=== PATIENT | female | born 1970 | race Caucasian/White ===

== ENCOUNTER 2021-01-10 12:20 | Emergency (ER) | payer BC, SELFPAY ==
[2021-01-10 12:39] VITALS: BP 130/92; PULSE 85; RESP 16; TEMP 36.8; O2SAT 98; BMI 31.1
--- NOTE | 2021-01-10 12:41 | XR_ITS ---
PROCEDURE: XR HAND RT MIN 3V CLINICAL INDICATION: smashed hand Injury with pain COMPARISON: No exams were available for comparison FINDINGS: No fracture or dislocation. No lytic or blastic change. There is normal mineralization. The joint spaces are well-preserved. No significant degenerative/arthritic changes. No erosive changes evident. Other findings:None. IMPRESSION: No acute findings. Dictated by: Emanuel Mcneal MD 01/10/2021 13:02 Emanuel Mcneal MD in [place] 01/10/2021 13:02
[2021-01-10 13:44] VITALS: BP 130/92; PULSE 85; RESP 16; TEMP 36.8; O2SAT 98; BMI 31.1
--- NOTE | 2021-01-10 14:10 | HMH.EDUTC ---
[facility] Disposition Clinical Impression: Hand contusion Qualifiers: Encounter type: initial encounter Laterality: right Qualified Code(s): S60.221A - Contusion of right hand, initial encounter Disposition: Home, Self-Care Condition on Discharge: Good Instructions: How To Perform RICE (Rest, Ice, Compress, Elevate) Additional Instructions: *RICE, Rest the extremity, Ice 15-20 minutes 3-4 times daily, Compress- wear the todd wrap as discussed as much as possible to help reduce swelling and pain, Elevate the extremity when at rest *Todd wrap/velcro splint is for support and help control swelling, use it except in the shower. Be sure that is not to tight but not to loose either *Elevate when resting *Ibuprofen every 6-8 hours as needed for pain an inflammation. If need something more can take Tylenol in between doses of Ibuprofen to help Immediately follow up with your family doctor for new or worsening of symptoms, or no noticeable improvement over the next 3-5 days Follow up with your Family Doctor if no improvement Return if needed Straight to ER if any life threatening symptoms Referrals: Eran Bowman MD [Primary Care Provider] - As needed Time of Disposition: 14:16 Medical Decision Making - Calvin Inquiry Pt receiving controlled substance: No Calvin was queried for this patient: No Vital Signs: 01/10/21 12:39 01/10/21 13:44 Temperature 98.3 F 98.3 F Temperature Source Oral Temporal Artery Scan Pulse Rate [Left] 85 85 Respiratory Rate 16 16 Blood Pressure [Right Arm] 130/92 H 130/92 H Blood Pressure Mean [Right Arm] 104 104 Blood Pressure Source [Right Arm] Automatic Cuff Automatic Cuff Blood Pressure Position [Right Arm] Sitting 02 Sat by Pulse Oximetry 98 98 Oxygen Delivery Method Room Air Room Air - Radiology Data #1 Image(s): Hand Image Reviewed: Yes I have reviewed radiologist's interpretation Preliminary Findings: No Fracture Seen No acute findings [facility] HPI - General Stated complaint: cow pinned R hand 01/05 swollen/painful Time Seen by Provider: 01/10/21 14:10 Mode of Arrival: Ambulatory Source of Information: Patient Limitations: No Limitations Description of Symptoms (Recalled from Triage Doc. 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 States that it smashed her hand and she immediatly had swelling and redness States that swelling has gone down but she still has pain in the top of her hand between index finger and thumb that shoots down her hand when she moves it - Related Data Home Medications Medication Instructions Recorded Confirmed No Known Home Medications 01/10/21 01/10/21 Allergies Allergy/AdvReac Type Severity Reaction Status Date / Time No Known Allergies Allergy Verified 01/10/21 13:43 - Worker's Comp Is this a Worker's Comp case?: No [facility] History - Hepatitis A Screen Drug use history?: No High risk sexual behaviors?: No History of sexually transmitted infection?: No Currently employed?: No Childcare worker?: No Do you have indoor plumbing?: Yes Do you have electricity?: Yes Attestation statement:: This patient has been screened for Hepatitis A risk factors. I have reviewed the patient's past medical history: Yes Medical History: Reports:: Asthma - Social History Smoking Status: Never smoker Alcohol Intake: never Occupational Status: employed Housing: house Household Members: spouse Family Hx:: Non-contributory ROS Obtained: Yes All systems reviewed & no additional complaints, Yes Systems reviewed as appropriate & no additional complaints - Constitutional Con
[2021-01-10 14:30] VITALS: BP 130/81; PULSE 78; RESP 18; TEMP 36.8; O2SAT 98
== END 2021-01-10 14:45 | disposition home or self-care (01) ==
LOC: ER 12:41 → UTC 12:41
PROVIDERS: Emergency Provider Nurse Practitioner; PCP Family Medicine
DX: S60.221A Contusion of right hand, initial encounter (principal); W23.1XXA Caught, crushed, jammed, or pinched between stationary objects, initial encounter; Y92.71 Barn as the place of occurrence of the external cause
CPT/HCPCS: 73130; 99202; G0463

== ENCOUNTER 2023-05-28 12:45 | Outpatient (CLI) | payer BC, SELFPAY ==
[2023-05-28 13:14] LABS: Basophils % 0.8 % (0.1-2.0); Eosinophils # 0.2 K/mm3 (0.0-0.4); Eosinophils % 3.5 % (0.1-12.0); Hematocrit 49.6 % (37.0-47.0); Hemoglobin 16.2 g/dL (12.2-16.2); Lymphocytes # 1.5 K/mm3 (0.7-4.5); Lymphocytes % 30.9 % (10-50); Mean Corpuscular HGB Conc 32.6 g/dL (31.8-35.4); Mean Corpuscular Volume 92.2 fl (81-99); Mean Platelet Volume 9.1 fl (7.4-10.4); Monocytes # 0.4 K/mm3 (0.1-1.0); Monocytes % 6.9 % (1.7-9.3); Neutrophils # 2.9 K/mm3 (1.8-7.8); Neutrophils % 57.8 % (37.0-80.0); Platelet Count 206 K/mm3 (142-424); Red Blood Count 5.38 M/mm3 (4.20-5.40); Red Cell Distribution Width 14.3 % (11.5-17.5)
[2023-05-28 13:28] LABS: Microscopic, Urine URINE MICROSCOPIC (MICROSCOPIC)
[2023-05-28 13:35] LABS: Appearance,Urine CLEAR (Clear); Bilirubin,Urine Negative (Negative); Blood, Urine Negative (Negative); Color,Urine YELLOW (Yellow); Glucose,Urine (UA) Negative (Negative); Ketones,Urine Negative (Negative); Leukocyte Esterase,Urine Negative (Negative); Nitrate,Urine Negative (Negative); Protein,Urine Negative (Negative); Specific Gravity, Urine <= 1.005 (1.005-1.030); Urobilinogen,Urine 0.2 EU/dl (0.2)
[2023-05-28 13:46] LABS: Chloride 104 mmol/L (98-107); Potassium 5.3 mmoL/L (3.5-5.1); Sodium 142 mmol/L (136-145)
[2023-05-28 13:48] LABS: Blood Urea Nitrogen 15 mg/dl (7-17); Estimated Glomerular Filt Rate 58 ml/min (>60); GFR (African American) 70 ML/MIN (>60)
[2023-05-28 13:49] LABS: Alanine Aminotransferase 27 U/L (12-78); Albumin Level 4.4 g/dl (3.5-5.0); Albumin/Globulin Ratio 1.4 (1.1-1.8); Alkaline Phosphatase 107 U/L (38-126); Anion Gap 13.3 mEq/L (5-15); Aspartate Amino Transferase 34 U/L (14-36); Bilirubin,Total 0.4 mg/dl (0.2-1.3); Calcium 10.3 mg/dl (8.4-10.2); Carbon Dioxide 30 mmol/L (22.0-30.0); Cholesterol 295 mg/dl (140-200); Globulin 3.1 g/dL (1.3-3.2); Glucose 104 mg/dl (74-100); HDL Cholesterol 42 mg/dl (40-60); Total Protein,Serum 7.5 g/dl (6.3-8.2); Triglycerides 178 mg/dl (30-150); VLDL Cholesterol 36 mg/dL (0-40)
[2023-05-28 13:49] LABS: Bacteria,Urine Trace /lpf; WBC,Urine Occasional #/hpf (0-3)
[2023-05-28 14:00] LABS: Direct LDL Cholesterol 187.11 mg/dL (100-129)
[2023-05-28 14:04] LABS: Hemoglobin A1C 5.6 % (4.0-6.0)
[2023-05-28 14:19] LABS: Thyroid Stimulating Hormone 6.68 uIU/mL (0.465-4.68)
[2023-05-28 14:21] LABS: Free T4 (Free Thyroxine) 0.88 ng/dl (0.78-2.19)
[2023-05-28 14:22] LABS: 25-OH Vitamin D, Total 35.4 ng/mL (30-100)
[2023-05-28 15:55] LABS: Folate 7.78 ng/mL; Vitamin B12 363 pg/mL (239-931)
== END 2023-05-28 23:59 ==
LOC: LAB.DROPOF 12:46
PROVIDERS: PCP Nurse Practitioner Family; Visit Provider Nurse Practitioner Family
DX: I10 Essential (primary) hypertension (principal); R42 Dizziness and giddiness; Z13.1 Encounter for screening for diabetes mellitus; G47.33 Obstructive sleep apnea (adult) (pediatric); R39.9 Unspecified symptoms and signs involving the genitourinary system; B96.89 Other specified bacterial agents as the cause of diseases classified elsewhere; Z79.899 Other long term (current) drug therapy
CPT/HCPCS: 80053; 80061; 81001; 82306; 82607; 82746; 83036; 84439; 84443; 85025; 87086

== ENCOUNTER 2023-05-28 13:22 | Outpatient (CLI) | payer BC, SELFPAY | END 2023-05-28 23:59 | LOC: LAB.DROPOF 13:22 | PROVIDERS: PCP Nurse Practitioner Family; Visit Provider Nurse Practitioner Family | DX: I10 Essential (primary) hypertension (principal) ==

== ENCOUNTER 2023-06-25 12:58 | Outpatient (CLI) | payer BC, SELFPAY ==
[2023-06-25 13:46] LABS: Chol/HDL Ratio 4.3 (1-3.5); Cholesterol 187 mg/dl (140-200); Creatine Kinase 78 U/L (30-135); HDL Cholesterol 44 mg/dl (40-60); Magnesium 2.1 mg/dl (1.6-2.3); Triglycerides 128 mg/dl (30-150); VLDL Cholesterol 26 mg/dL (0-40)
[2023-06-25 14:03] LABS: Free T4 (Free Thyroxine) 0.82 ng/dl (0.78-2.19)
[2023-06-25 14:19] LABS: Thyroid Stimulating Hormone 7.32 uIU/mL (0.465-4.68)
== END 2023-06-25 23:59 ==
LOC: LAB.DROPOF 12:58
PROVIDERS: PCP Nurse Practitioner Family; Visit Provider Nurse Practitioner Family
DX: M79.18 Myalgia, other site (principal); E03.9 Hypothyroidism, unspecified
CPT/HCPCS: 80061; 82550; 83735; 84439; 84443

== ENCOUNTER 2023-08-27 15:26 | Outpatient (CLI) | payer BC, SELFPAY ==
[2023-08-27 17:00] LABS: Free T4 (Free Thyroxine) 0.65 ng/dl (0.78-2.19)
== END 2023-08-27 23:59 ==
LOC: LAB.DROPOF 15:26
PROVIDERS: PCP Nurse Practitioner Family; Visit Provider Nurse Practitioner Family
DX: E03.9 Hypothyroidism, unspecified (principal)
CPT/HCPCS: 84439; 84443

== ENCOUNTER 2023-08-31 13:17 | Outpatient (CLI) | payer BC, SELFPAY ==
[2023-08-31 13:37] LABS: Chloride 104 mmol/L (98-107); Potassium 5.6 mmoL/L (3.5-5.1); Sodium 138 mmol/L (136-145)
[2023-08-31 13:40] LABS: Alanine Aminotransferase 36 U/L (12-78); Albumin Level 4.2 g/dl (3.5-5.0); Albumin/Globulin Ratio 1.4 (1.1-1.8); Alkaline Phosphatase 114 U/L (38-126); Anion Gap 6.6 mEq/L (5-15); Aspartate Amino Transferase 34 U/L (14-36); Bilirubin,Total 0.6 mg/dl (0.2-1.3); Blood Urea Nitrogen 19 mg/dl (7-17); Carbon Dioxide 33 mmol/L (22.0-30.0); Estimated Glomerular Filt Rate 52 ml/min (>60); GFR (African American) 63 ML/MIN (>60); Globulin 2.9 g/dL (1.3-3.2); Total Protein,Serum 7.1 g/dl (6.3-8.2)
[2023-08-31 13:41] LABS: Calcium 10.9 mg/dl (8.4-10.2); Glucose 86 mg/dl (74-100)
[2023-08-31 13:55] LABS: Free T4 (Free Thyroxine) 0.77 ng/dl (0.78-2.19)
[2023-08-31 15:30] LABS: Intact Parathyroid Hormone 196.1 pg/mL (7.5-53.5)
[2023-09-02 10:31] LABS: Thyroid Peroxidase Antibodies 351 IU/mL (0-34)
== END 2023-08-31 23:59 | disposition home or self-care (01) ==
LOC: LAB.DROPOF 13:18
PROVIDERS: PCP Nurse Practitioner Family; Visit Provider Nurse Practitioner Family
DX: E03.9 Hypothyroidism, unspecified (principal); E21.3 Hyperparathyroidism, unspecified
CPT/HCPCS: 80053; 83970; 84439; 84443; 86376

== ENCOUNTER 2023-09-09 13:11 | Outpatient (CLI) | payer BC, SELFPAY ==
--- NOTE | 2023-09-09 13:12 | US_ITS ---
FINAL REPORT TECHNIQUE: Real-time grayscale and color ultrasound of the thyroid was performed. CLINICAL HISTORY: Thyroidism, primary hyperparathyroidism COMPARISON: None FINDINGS: The thyroid gland measures 42 x 12 x 15 mm on the right and 36 x 14 x 12 mm on the left. The isthmus measures 3 mm. The parenchyma is heterogeneous. Nodules: No evidence of mass or nodule. IMPRESSION: Heterogeneous thyroid without evidence of mass or nodule. Reviewed, Interpreted and Dictated by Bronson Doe MD Transcribed by Sharon Stockton Authenticated and . [facility]
== END 2023-09-09 23:59 | disposition home or self-care (01) ==
LOC: RAD 13:12
PROVIDERS: PCP Nurse Practitioner Family; Visit Provider Nurse Practitioner Family
DX: E21.3 Hyperparathyroidism, unspecified (principal); E03.9 Hypothyroidism, unspecified
CPT/HCPCS: 76536

== ENCOUNTER 2023-09-17 13:22 | Outpatient (CLI) | payer BC, SELFPAY ==
--- NOTE | 2023-09-17 13:28 | NM_ITS ---
FINAL REPORT CLINICAL HISTORY: thyroid function/imaging, w/ technetium COMPARISON: None FINDINGS: THYROID SCAN ONLY: A thyroid scan was performed after the intravenous administration of 9.5 mCi of technetium sodium pertechnetate. No uptake was measured. No evidence of focal areas of increased or decreased uptake are noted. The uptake is homogeneous. IMPRESSION: Normal appearing thyroid scan only, without evidence of areas of increased or decreased uptake of radionuclide. Reviewed, Interpreted and Dictated by Mamie Pagan MD Transcribed by Orly Samuels Authenticated and [facility]
[2023-09-17] MEDS: SODIUM CHLORIDE 0.9% 10ML SYR (RAD ONLY) 10 ML IV (14:00)
[2023-09-17] MEDS: ISOTOPE TE 99 SODIUM PERTECH (PER MCI) 1 MCI IV (15:31)
== END 2023-09-17 23:59 | disposition home or self-care (01) ==
LOC: RAD 13:22
PROVIDERS: PCP Nurse Practitioner Family; Visit Provider Nurse Practitioner Family
DX: E03.9 Hypothyroidism, unspecified (principal); E21.3 Hyperparathyroidism, unspecified
CPT/HCPCS: 78013; A9512

== ENCOUNTER 2023-09-23 12:20 | Outpatient (CLI) | payer BC, SELFPAY ==
[2023-09-23 13:30] LABS: Chloride 104 mmol/L (98-107)
[2023-09-23 13:31] LABS: Potassium 5.4 mmoL/L (3.5-5.1); Sodium 141 mmol/L (136-145)
[2023-09-23 13:33] LABS: Alanine Aminotransferase 30 U/L (12-78); Aspartate Amino Transferase 38 U/L (14-36); Blood Urea Nitrogen 15 mg/dl (7-17); Estimated Glomerular Filt Rate 65 ml/min (>60); GFR (African American) 79 ML/MIN (>60)
[2023-09-23 13:34] LABS: Albumin Level 4.3 g/dl (3.5-5.0); Albumin/Globulin Ratio 1.4 (1.1-1.8); Alkaline Phosphatase 106 U/L (38-126); Anion Gap 13.4 mEq/L (5-15); Bilirubin,Total 0.5 mg/dl (0.2-1.3); Calcium 11.1 mg/dl (8.4-10.2); Carbon Dioxide 29 mmol/L (22.0-30.0); Glucose 106 mg/dl (74-100); Total Protein,Serum 7.3 g/dl (6.3-8.2)
[2023-09-23 13:50] LABS: Free T4 (Free Thyroxine) 1.05 ng/dl (0.78-2.19)
[2023-09-23 14:04] LABS: Thyroid Stimulating Hormone 7.37 uIU/mL (0.465-4.68)
== END 2023-09-23 23:59 | disposition home or self-care (01) ==
LOC: LAB 12:21
PROVIDERS: PCP Nurse Practitioner Family; Visit Provider Nurse Practitioner Family
DX: N17.9 Acute kidney failure, unspecified (principal); E21.3 Hyperparathyroidism, unspecified; E03.9 Hypothyroidism, unspecified
CPT/HCPCS: 36415; 80053; 84439; 84443

== ENCOUNTER → 2023-11-18 07:26 | Outpatient (CLI) | payer BC, SELFPAY | LOC: SL 07:26 | PROVIDERS: PCP Nurse Practitioner Family; Visit Provider Nurse Practitioner Family | DX: R06.89 Other abnormalities of breathing (principal); G47.33 Obstructive sleep apnea (adult) (pediatric) | CPT/HCPCS: G0399 ==

== ENCOUNTER 2024-03-23 09:34 | Outpatient (CLI) | payer BC, SELFPAY | END 2024-03-23 23:59 | disposition home or self-care (01) | LOC: LAB.DROPOF 03-24 10:49 | PROVIDERS: PCP Nurse Practitioner Family; Visit Provider Nurse Practitioner Family | DX: R39.9 Unspecified symptoms and signs involving the genitourinary system (principal) | CPT/HCPCS: 87086 ==

== ENCOUNTER 2024-03-25 12:18 | Outpatient (CLI) | payer BC, SELFPAY ==
[2024-03-25 12:24] LABS: Microscopic, Urine URINE MICROSCOPIC (MICROSCOPIC)
[2024-03-25 13:16] LABS: Appearance,Urine CLEAR (Clear); Bilirubin,Urine Negative (Negative); Blood, Urine Negative (Negative); Color,Urine YELLOW (Yellow); Glucose,Urine (UA) Negative (Negative); Ketones,Urine Negative (Negative); Leukocyte Esterase,Urine Negative (Negative); Nitrate,Urine Negative (Negative); Protein,Urine Negative (Negative); Urobilinogen,Urine 0.2 EU/dl (0.2)
[2024-03-25 13:41] LABS: Bacteria,Urine Trace /lpf
== END 2024-03-25 23:59 | disposition home or self-care (01) ==
LOC: LAB 12:19
PROVIDERS: PCP Nurse Practitioner Family; Visit Provider Nurse Practitioner Family
DX: R82.90 Unspecified abnormal findings in urine (principal)
CPT/HCPCS: 81001

== ENCOUNTER 2024-04-07 16:03 | Outpatient (CLI) | payer BC, SELFPAY ==
--- NOTE | 2024-04-07 16:07 | XR_ITS ---
PROCEDURE INFORMATION: Exam: XR Abdomen Exam date and time: 04/07/2024 4:16 PM Age: 53 years old Clinical indication: Abdominal pain; Flank; Right; Additional info: Right low back pain TECHNIQUE: Imaging protocol: Radiologic exam of the abdomen. Views: Frontal supine view of the abdomen. 1 View. Total images: 2 COMPARISON: No relevant prior studies available. FINDINGS: Gastrointestinal tract: Bowel gas pattern is nonobstructive and nonspecific. Intraperitoneal space: Surgical clips noted within the right upper quadrant. Bones/joints: Unremarkable. Other findings: Punctate calcifications overlie the right kidney. IMPRESSION: 1. Punctate calcifications overlie the right kidney. 2. Bowel gas pattern is nonobstructive and nonspecific.
[2024-04-07 16:24] LABS: Microscopic, Urine URINE MICROSCOPIC (MICROSCOPIC)
[2024-04-07 16:54] LABS: Appearance,Urine CLEAR (Clear); Bilirubin,Urine Negative (Negative); Blood, Urine Negative (Negative); Color,Urine YELLOW (Yellow); Glucose,Urine (UA) Negative (Negative); Ketones,Urine Negative (Negative); Leukocyte Esterase,Urine Negative (Negative); Nitrate,Urine Negative (Negative); Protein,Urine Negative (Negative); Specific Gravity, Urine 1.025 (1.005-1.030); Urobilinogen,Urine 0.2 EU/dl (0.2)
[2024-04-07 17:45] LABS: Bacteria,Urine 1+ /lpf; Mucus,Urine 1+ /lpf
== END 2024-04-07 23:59 | disposition home or self-care (01) ==
LOC: LAB 16:04
PROVIDERS: PCP Nurse Practitioner Family; Visit Provider Nurse Practitioner Family
DX: M54.50 Low back pain, unspecified (principal)
CPT/HCPCS: 74018; 81001; 87086

== ENCOUNTER 2024-06-08 08:12 | Outpatient (CLI) | payer BC, SELFPAY ==
--- NOTE | 2024-06-08 08:13 | MM_ITS ---
PROCEDURE INFORMATION: Exam: Bilateral Screening 3D Mammography Exam date and time: 06/08/2024 8:00 AM Age: 54 years old Clinical indication: Screening examination TECHNIQUE: Imaging protocol: Bilateral Screening tomosynthesis and 2D mammography including computer-aided detection (CAD) when performed. COMPARISON: No relevant prior studies available. FINDINGS: MAMMOGRAPHY: Breast composition: There are scattered areas of fibroglandular density. Mass: None. Architectural distortion: None. Calcifications: No suspicious calcifications. Asymmetric density: None. Skin thickening: None. Axillary adenopathy: None. IMPRESSION: No mammographic evidence of malignancy. Annual screening is recommended unless otherwise clinically indicated. ASSESSMENT: BI-RADS Category 1: Negative.
== END 2024-06-08 23:59 | disposition home or self-care (01) ==
LOC: RAD 08:13
PROVIDERS: PCP Nurse Practitioner Family; Visit Provider Obstetrics & Gynecology
DX: Z12.31 Encounter for screening mammogram for malignant neoplasm of breast (principal)
CPT/HCPCS: 77063; 77067

== ENCOUNTER 2024-07-20 16:43 | Outpatient (CLI) | payer BC, SELFPAY ==
[2024-07-20 12:17] LABS: Microscopic, Urine URINE MICROSCOPIC (MICROSCOPIC)
[2024-07-20 12:50] LABS: Basophils % 0.7 % (0.1-2.0); Eosinophils # 0.2 K/mm3 (0.0-0.4); Eosinophils % 4.1 % (0.1-12.0); Hematocrit 49.3 % (37.0-47.0); Hemoglobin 15.9 g/dL (12.2-16.2); Lymphocytes # 1.9 K/mm3 (0.7-4.5); Lymphocytes % 34.3 % (10-50); Mean Corpuscular HGB Conc 32.3 g/dL (31.8-35.4); Mean Corpuscular Hemoglobin 28.3 pg (27.0-31.2); Mean Corpuscular Volume 87.9 fl (81-99); Mean Platelet Volume 11.5 fl (7.4-10.4); Monocytes # 0.4 K/mm3 (0.1-1.0); Monocytes % 6.5 % (1.7-9.3); Neutrophils # 2.9 K/mm3 (1.8-7.8); Neutrophils % 53.8 % (37.0-80.0); Platelet Count 220 K/mm3 (142-424); Red Blood Count 5.61 M/mm3 (4.20-5.40); Red Cell Distribution Width 13.9 % (11.5-17.5); White Blood Count 5.4 K/mm3 (4.8-10.8)
[2024-07-20 13:46] LABS: Appearance,Urine CLEAR (Clear); Bilirubin,Urine Negative (Negative); Blood, Urine Negative (Negative); Color,Urine YELLOW (Yellow); Glucose,Urine (UA) Negative (Negative); Ketones,Urine Negative (Negative); Leukocyte Esterase,Urine TRACE (Negative); Nitrate,Urine Negative (Negative); Protein,Urine Negative (Negative); Specific Gravity, Urine 1.025 (1.005-1.030); Urobilinogen,Urine 0.2 EU/dl (0.2)
[2024-07-20 13:56] LABS: Free T4 (Free Thyroxine) 1.07 ng/dl (0.78-2.19)
[2024-07-20 14:24] LABS: HIV Combo NEGATIVE (Negative)
[2024-07-20 14:31] LABS: Hepatitis C Ab Qual. W/ RFX NEGATIVE (Negative)
[2024-07-20 14:46] LABS: Albumin Level 4.4 g/dl (3.5-5.0); Chloride 103 mmol/L (98-107); Potassium 4.9 mmoL/L (3.5-5.1); Sodium 140 mmol/L (136-145)
[2024-07-20 14:48] LABS: Alanine Aminotransferase 40 U/L (12-78); Aspartate Amino Transferase 40 U/L (14-36); Blood Urea Nitrogen 17 mg/dl (7-17); Estimated Glomerular Filt Rate 58 ml/min (>60); GFR (African American) 70 ML/MIN (>60)
[2024-07-20 14:49] LABS: Albumin/Globulin Ratio 1.6 (1.1-1.8); Alkaline Phosphatase 85 U/L (38-126); Anion Gap 11.9 mEq/L (5-15); Bilirubin,Total 0.3 mg/dl (0.2-1.3); Carbon Dioxide 30 mmol/L (22.0-30.0); Cholesterol 228 mg/dl (140-200); Globulin 2.7 g/dL (1.3-3.2); Glucose 84 mg/dl (74-100); HDL Cholesterol 46 mg/dl (40-60); Iron 116 ug/dL (37-170); Total Protein,Serum 7.1 g/dl (6.3-8.2); Triglycerides 197 mg/dl (30-150); VLDL Cholesterol 39 mg/dL (0-40)
[2024-07-20 14:59] LABS: Total Protein,Urine Random < 5.0 mg/dL (0.0-12.0)
[2024-07-20 15:00] LABS: Direct LDL Cholesterol 142.68 mg/dL (100-129); Hemoglobin A1C 5.8 % (4.0-6.0)
[2024-07-20 15:23] LABS: Ferritin 59.8 ng/ml (11.1-264)
[2024-07-20 16:36] LABS: Vitamin B12 290 pg/mL (239-931)
[2024-07-20 17:31] LABS: Total Iron Binding Capacity 376 ug/dL (265-497)
[2024-07-21 02:04] LABS: Bacteria,Urine Trace /lpf
[2024-07-21 02:05] LABS: Squamous Epithelial Cell,Urine Occasional #/hpf (0-5)
== END 2024-07-20 23:59 | disposition home or self-care (01) ==
LOC: LAB.DROPOF 16:44
PROVIDERS: PCP Nurse Practitioner Family; Visit Provider Nurse Practitioner Family
DX: Z11.59 Encounter for screening for other viral diseases (principal); Z11.4 Encounter for screening for human immunodeficiency virus [HIV]; Z13.1 Encounter for screening for diabetes mellitus; G47.00 Insomnia, unspecified; E53.8 Deficiency of other specified B group vitamins; G47.33 Obstructive sleep apnea (adult) (pediatric); E21.3 Hyperparathyroidism, unspecified; E03.9 Hypothyroidism, unspecified; I10 Essential (primary) hypertension; N95.1 Menopausal and female climacteric states; E78.5 Hyperlipidemia, unspecified; R53.83 Other fatigue; Z87.891 Personal history of nicotine dependence
CPT/HCPCS: 80053; 80061; 81001; 82306; 82607; 82728; 83036; 83540; 83550; 84156; 84439; 84443; 85025; 86803; 87086; 87389

== ENCOUNTER 2024-10-17 09:55 | Outpatient (CLI) | payer BC, SELFPAY ==
[2024-10-17 11:14] LABS: Chol/HDL Ratio 6.1 (1-3.5); Cholesterol 279 mg/dl (140-200); HDL Cholesterol 46 mg/dl (40-60); Magnesium 1.9 mg/dl (1.6-2.3); Triglycerides 225 mg/dl (30-150); VLDL Cholesterol 45 mg/dL (0-40)
[2024-10-17 11:25] LABS: Direct LDL Cholesterol 174.44 mg/dL (100-129)
[2024-10-17 11:30] LABS: Free T4 (Free Thyroxine) 1.11 ng/dl (0.78-2.19)
[2024-10-17 11:31] LABS: 25-OH Vitamin D, Total 26.6 ng/mL (30-100)
[2024-10-17 12:04] LABS: Vitamin B12 358 pg/mL (239-931)
== END 2024-10-17 23:59 | disposition home or self-care (01) ==
LOC: LAB 09:57
PROVIDERS: PCP Nurse Practitioner Family; Visit Provider Nurse Practitioner Family
DX: E03.9 Hypothyroidism, unspecified (principal); G47.33 Obstructive sleep apnea (adult) (pediatric); E53.8 Deficiency of other specified B group vitamins; E55.9 Vitamin D deficiency, unspecified; E78.5 Hyperlipidemia, unspecified; F41.9 Anxiety disorder, unspecified; G57.93 Unspecified mononeuropathy of bilateral lower limbs; I10 Essential (primary) hypertension; J45.909 Unspecified asthma, uncomplicated; N95.1 Menopausal and female climacteric states
CPT/HCPCS: 36415; 80061; 82306; 82607; 83735; 84439; 84443

== ENCOUNTER 2025-02-08 11:05 | Outpatient (CLI) | payer BC, SELFPAY ==
[2025-02-08 12:29] LABS: Microscopic, Urine URINE MICROSCOPIC (MICROSCOPIC)
[2025-02-08 12:50] LABS: Hematocrit 47.8 % (37.0-47.0); Hemoglobin 15.6 g/dL (12.2-16.2); Immature Granulocytes % 0.6 %; Mean Corpuscular HGB Conc 32.6 g/dL (31.8-35.4); Mean Corpuscular Hemoglobin 29.5 pg (27.0-31.2); Mean Corpuscular Volume 90.4 fl (81-99); Nucleated Red Blood Cells % 0 %; Platelet Count 205 K/mm3 (142-424); Red Blood Count 5.29 M/mm3 (4.20-5.40); Red Cell Distribution Width-SD 42.7 fL; White Blood Count 5.4 K/mm3 (4.8-10.8)
[2025-02-08 13:28] LABS: Albumin Level 4.6 g/dl (3.5-5.0); Chloride 100 mmol/L (98-107); Sodium 141 mmol/L (136-145)
[2025-02-08 13:29] LABS: Potassium 4.3 mmoL/L (3.5-5.1)
[2025-02-08 13:31] LABS: Alanine Aminotransferase 24 U/L (12-78); Albumin/Globulin Ratio 1.5 (1.1-1.8); Alkaline Phosphatase 75 U/L (38-126); Anion Gap 15.3 mEq/L (5-15); Aspartate Amino Transferase 32 U/L (14-36); Bilirubin,Total 0.7 mg/dl (0.2-1.3); Blood Urea Nitrogen 15 mg/dl (7-17); Carbon Dioxide 30 mmol/L (22.0-30.0); Creatinine,Serum 0.90 mg/dl (0.52-1.04); Estimated Glomerular Filt Rate 65 ml/min (>60); GFR (African American) 79 ML/MIN (>60); Globulin 3.1 g/dL (1.3-3.2); Total Protein,Serum 7.7 g/dl (6.3-8.2)
[2025-02-08 13:32] LABS: Bilirubin,Urine Negative (Negative); Calcium 9.7 mg/dl (8.4-10.2); Cholesterol 198 mg/dl (140-200); Color,Urine YELLOW (Yellow); Glucose 89 mg/dl (74-100); Glucose,Urine (UA) Negative (Negative); HDL Cholesterol 60 mg/dl (40-60); Ketones,Urine Negative (Negative); Leukocyte Esterase,Urine Negative (Negative); PH,Urine 6.0 (5.0-8.5); Protein,Urine Negative (Negative); Specific Gravity, Urine <= 1.005 (1.005-1.030); Triglycerides 186 mg/dl (30-150); Urobilinogen,Urine 0.2 EU/dl (0.2)
[2025-02-08 13:49] LABS: Free T4 (Free Thyroxine) 1.41 ng/dl (0.78-2.19)
[2025-02-08 14:03] LABS: Thyroid Stimulating Hormone 2.15 uIU/mL (0.465-4.68)
[2025-02-08 14:21] LABS: Hemoglobin A1C 5.9 % (4.0-6.0)
[2025-02-08 14:42] LABS: Bacteria,Urine Trace /lpf; Squamous Epithelial Cell,Urine Occasional #/hpf (0-5); WBC,Urine Occasional #/hpf (0-3)
[2025-02-08 18:52] LABS: 25-OH Vitamin D, Total 56.6 ng/mL (30-100)
--- OUTSIDE RECORDS SUMMARY | 2025-02-10 11:08 | XMS_ITS | Clinical Summary ---
Author Organization [facility] Address [address] [place] [address] Care Team Providers Care Security Sergeant Name Role Phone Yamila Elizabeth APRN Primary Care Provider [phone] Allergies Active Allergy Reactions Criticality Noted Date Comments Lisinopril Cough Low 10/16/2023 Medications albuterol 108 (90 Base) MCG/ACT inhaler if needed. 06/26/19 24 Active busPIRone (Buspar) 7.5 MG tablet 2 (two) times a day. 09/28/19 24 Active levothyroxine (Synthroid, Levoxyl) 100 MCG tablet 1 (one) time each day in the morning. 09/28/19 24 Active ondansetron ODT (Zofran-ODT) 4 MG disintegrating tablet every 8 (eight) hours if needed. 06/26/19 24 Active PARoxetine CR (Paxil-CR) 37.5 MG 24 hr tablet 1 (one) time each day in the morning. 09/23/19 24 Active rosuvastatin (Crestor) 10 MG tablet 1 (one) time each day in the morning. 09/28/19 24 Active losartan (Cozaar) 50 MG tabletIndications: Primary hypertension Take 1 tablet (50 mg) by mouth 1 (one) time each day. 30 tablet 2 10/16/19 24 Active Additional Information Patient taking differently:50 mg OralEvery morning, Reported on 12/25/2023 amoxicillin-clavul anate (Augmentin) 875-125 MG tablet 01/14/20 24 Active Active Problems Problem Noted Date Diagnosed Date Obesity (BMI 35.0-39.9 without comorbidity) 11/15 Severe obesity (BMI 35.0-39.9) with comorbidity 11/29/2023 Hyperparathyroidism, unspecified 10/16/2023 Primary hypertension 10/16/2023 Hypothyroidism, unspecified 10/16/2023 Sweating abnormality 10/16/2023 Sleep disturbance 10/16/2023 Serum calcium elevated 10/16/2023 Unintended weight gain 10/16/2023 Elevated parathyroid hormone 10/16/2023 Family History Medical History Relation Name Comments Heart disease Father Stroke Mother Relation Name Status Comments Father Mother Social History Tobacco Use Types Packs/Day Years Used Date Smoking Tobacco: Former Cigarettes 1.5 10.2 1 - 2013 Smokeless Tobacco: Never Tobacco Cessation:Counseling Given: No Alcohol Use Standard Drinks/Week Comments Never 0 (1 standard drink = 0.6 oz pur e alcohol) Comments No Sex and Gender Information Value Date Recorded Sex Assigned at Not on file Legal Sex Female 12:46 PM EDT Gender Identity Female 11/12/2023 5:14 PM EDT Sexual Orientation Straight 11/12/2023 5: 14 PM EDT Last Filed Vital Signs Vital Sign Reading Time Taken Comments Blood Pressure 111/75 01/22/2024 8:31 AM EDT Pulse 73 01/22/2024 8:31 AM EDT Temperature 36.6 C (97.9 F) 01/22/2024 8:31 AM EDT Respiratory Rate 16 01/22/2024 8:31 AM EDT Oxygen Saturation 98% 01/22/2024 8:31 AM EDT Inhaled Oxygen Concentration - - Weight 91.9 kg (202 lb 9.6 oz) 01/22/2024 8:31 A M EDT Height 157.5 cm (5' 2.01 ) 01/20/2024 12:56 PM E DT Body Mass Index 37.05 01/20/2024 12:56 PM EDT Plan of Treatment Health Maintenance Due Date Last Done Comments [facility]-Depression Screening 1970 [facility]-HIV Screening 1970 [facility]-Hepatitis C Screening 1970 [facility]-Infant/Child/Adol SDOH Screenings 1970 [facility]- SDOH Screenings 1988 [facility]-Adult SDOH Screenings 1988 [facility]-DTaP,Tdap,and Td Vaccines (1 - Tdap) 1989 [facility]-Hepatitis B Vaccines (1 of 3 - 19+ 3-dose series) 1989 [facility]-Pap Smear 1991 [facility]-Cervical Cancer Screening 2000 [facility]-HPV/Cotest 2000 CT Colonography 2015 Colonoscopy 2015 FIT-DNA 2015 FIT 2015 FOBT 2015 Sigmoidoscopy 2015 [facility]-Colorectal Cancer Screening 2015 [facility]-Breast Cancer Screening 2020 [facility]-Pneumococcal Vaccine: 50+ Years (1 of 1 - PCV) 2020 [facility]-Zoster Vaccines (1 of 2) 2020 [id number] Vaccine (4 - season) 2025 03/29/2021, 06/27/2020, 05/30/2020 [facility]-Influenza Vaccine (#1) 2025 [facility]-Obesity Intervention Completed 024, 01/20/2024, 11/20/2023, Additional history exists HPV Vaccines Aged Out No longer eligi ble based on patient's age to complete this topic [facility]-HIB Vaccines Aged Out No longer e ligible based on patient's age to complete this topic [facility]-Hepatitis A Vaccines Aged Out No longer eligible based on patient's age to complete this topic [facility]-IPV Vaccines Aged Out No longer e ligible based on patient's age to complete this topic [facility]-Rotavirus Vaccines Aged Out No lo nger eligible based on patient's age to complete this topic Insurance Care Teams Security Sergeant Relationship Specialty Start Date End Date Yamila Elizabeth APRN [address] [place] [address] PCP - General 10/16/23
== END 2025-02-08 23:59 ==
LOC: LAB.DROPOF 02-10 11:06
PROVIDERS: PCP Nurse Practitioner Family; Visit Provider Nurse Practitioner Family
DX: E55.9 Vitamin D deficiency, unspecified (principal); G57.93 Unspecified mononeuropathy of bilateral lower limbs; E53.8 Deficiency of other specified B group vitamins; E03.9 Hypothyroidism, unspecified; I10 Essential (primary) hypertension; F41.9 Anxiety disorder, unspecified; G47.33 Obstructive sleep apnea (adult) (pediatric); R41.3 Other amnesia; E11.9 Type 2 diabetes mellitus without complications; E78.5 Hyperlipidemia, unspecified
CPT/HCPCS: 80053; 80061; 81001; 82306; 83036; 84439; 84443; 85025; 87086